=== PATIENT | female | born 1975 | race Caucasian/White ===

== ENCOUNTER 2017-07-26 23:51 | Emergency (ER) | payer OTHER ==
[~2017-07-26] VITALS: Ht 160 cm; Wt 81.2 kg
[2017-07-27 00:07] VITALS: Ht 160 cm; Wt 81.2 kg
[2017-07-27 05:06] VITALS: BP 128/74
== END 2017-07-27 05:06 | disposition home or self-care (01) ==
LOC: ED 23:51
DX: L25.9 Unspecified contact dermatitis, unspecified cause (principal)
CPT/HCPCS: J7512; Q0163

== ENCOUNTER 2019-06-20 12:44 | Emergency (ER) | payer BC ==
[~2019-06-20] VITALS: Ht 160 cm; Wt 74.4 kg
[2019-06-20 12:48] VITALS: Ht 160 cm; Wt 74.4 kg
[2019-06-20 13:00] LABS: microscopic required? NO
[2019-06-20 13:20] LABS: UA SPECIFIC GRAVITY 1.025 (1.005-1.035); urine erythrocyte NEGATIVE (NEGATIVE)
[2019-06-20 13:21] LABS: BASOPHIL % 0.3 % (0-2); PLATELET COUNT 309 x10^3mcL (130-400); RED CELL DISTRIBUTION WIDTH 13.1 % (11.5-14.5)
[2019-06-20 13:53] LABS: CALCIUM 9.1 mg/dL (8.5-10.1); CHLORIDE SERUM 103 mmol/L (98-107); CREATININE SERUM 0.7 mg/dL (0.6-1.0); GFR1 > 60 mL/min; GLUCOSE SERUM 120 mg/dL (74-106); POTASSIUM SERUM 3.6 mmol/L (3.5-5.1); SODIUM SERUM 135 mmol/L (136-145)
[2019-06-20 13:58] LABS: ALBUMIN 3.6 g/dL (3.4-5.0); ALKALINE PHOSPHATASE 75 U/L (46-116); ALT/SGPT 26 U/L (14-59); AST/SGOT 16 U/L (15-37); BILIRUBIN TOTAL 0.6 mg/dL (0.20-1.00); TOTAL PROTEIN, SERUM 7.4 g/dL (6.4-8.2)
[2019-06-20 15:36] VITALS: BP 145/73
== END 2019-06-20 15:36 | disposition home or self-care (01) ==
LOC: ED 12:44
DX: N83.202 Unspecified ovarian cyst, left side (principal); N83.201 Unspecified ovarian cyst, right side; D25.9 Leiomyoma of uterus, unspecified
CPT/HCPCS: 36415

== ENCOUNTER 2020-05-26 13:55 | Emergency (ER) | payer BC ==
[~2020-05-26] VITALS: Ht 160 cm; Wt 72.6 kg
[2020-05-26 14:11] VITALS: Ht 160 cm; Wt 72.6 kg
[2020-05-26 18:32] LABS: BASOPHIL % 0.8 % (0.2-1.3); PLATELET COUNT 293 x10^3mcL (179-408); RED CELL DISTRIBUTION WIDTH 13.1 % (12.3-17.7)
[2020-05-26 18:51] LABS: CALCIUM 8.8 mg/dL (8.5-10.1); CARBON DIOXIDE 26.2 mmol/L (21-32); CHLORIDE SERUM 105 mmol/L (98-107); CREATININE SERUM 0.7 mg/dL (0.6-1.0); GFR1 > 60 mL/min; GLUCOSE SERUM 103 mg/dL (74-106); POTASSIUM SERUM 3.8 mmol/L (3.5-5.1); SODIUM SERUM 140 mmol/L (136-145)
[2020-05-26 18:55] LABS: ALBUMIN 3.8 g/dL (3.4-5.0); ALKALINE PHOSPHATASE 82 U/L (46-116); ALT/SGPT 23 U/L (14-59); AST/SGOT 11 U/L (15-37); TOTAL PROTEIN, SERUM 6.9 g/dL (6.4-8.2)
[2020-05-26 20:05] VITALS: BP 142/76
== END 2020-05-26 20:05 | disposition home or self-care (01) ==
LOC: ED 13:55
PROVIDERS: Student in an Organized Health Care Education/Training Program
DX: R07.89 Other chest pain (principal); N83.209 Unspecified ovarian cyst, unspecified side; Z20.828 Contact with and (suspected) exposure to other viral communicable diseases